=== PATIENT | female | born 1965 | race African-American/Black ===

== ENCOUNTER 2023-09-30 11:48 | Outpatient (CLI) | payer OTHER ==
[2023-09-30 13:13] LABS: Hematocrit 34.3 % (34.9-44.5); Hemoglobin 11.6 g/dL (12.0-15.5); Mean Corpuscular HGB CONC 33.8 g/dL (32.0-36.0); Mean Corpuscular Hemoglobin 27.1 pg (27.0-33.0); Mean Corpuscular Volume 80.1 fL (81.6-98.3); Mean Platelet Volume 11.4 fL (7.4-10.4); Platelet Count 285 10x3/uL (150-450); RBC Distribution Width 14.1 % (11.5-14.5); Red Blood Cell (RBC) Count 4.28 10x6/uL (3.90-5.03); White Blood Cell (WBC) Count 8.7 10x3/uL (3.5-10.5)
[2023-09-30 13:43] LABS: Anion Gap 12 mmol/L (10-20); BUN (Urea Nitrogen) 11 mg/dL (9.8-20.1); Calc. Creatinine Clearance 0 mL/min (70-130); Calcium 9.7 mg/dL (7.8-10.44); Carbon Dioxide 28 mmol/L (22-29); Chloride 108 mmol/L (98-107); Estimated GFR 65; Glucose 105 mg/dL (70-105); Potassium 3.9 mmol/L (3.5-5.1); Sodium 144 mmol/L (136-145)
== END 2023-09-30 11:49 | disposition home or self-care (01) ==
LOC: CSHLAB 11:48
PROVIDERS: ATTEND Surgery
DX: Z01.818 Encounter for other preprocedural examination (principal); C50.211 Malignant neoplasm of upper-inner quadrant of right female breast
CPT/HCPCS: 80048; 85027; 93005; 93010

== ENCOUNTER 2023-10-06 06:57 | Day surgery (SDC) | payer OTHER ==
[2023-09-30 12:23] VITALS: BMI 52.7
[2023-10-06] MEDS ORDERED: Bupivacaine PF 0.5% 30 ML VIAL ONE (08:53)
[2023-10-06] MEDS ORDERED: Isosulfan Blue 50 MG/5 ML VIAL ONE (08:53)
[2023-10-06] MEDS ORDERED: EPINEPHrine 1 MG/ML VIAL ONE (08:53)
[2023-10-06] MEDS ORDERED: CEFAZOLIN 2 GM VIAL ONE (08:53)
[2023-10-06] MEDS ORDERED: fentaNYL 50 mcg/mL 1 mL Vial ONE ×2 (09:38→12:14)
[2023-10-06] MEDS ORDERED: PROPOFOL 20 ML ONE (09:38)
[2023-10-06] MEDS ORDERED: Lidocaine 1% PF 5 ML VIAL ONE (09:38)
[2023-10-06] MEDS ORDERED: PHENYLEPHRINE-NS 100 MCG/ML 10 ML SYRINGE ONE (12:11)
[2023-10-06] MEDS ORDERED: Ondansetron PF 4 MG/2 ML Vial ONE (12:11)
[2023-10-06] MEDS ORDERED: HYDROcodone/Acetaminophen 5/325 mg Tablet ONE (12:46)
== END 2023-10-06 13:30 | disposition home or self-care (01) ==
LOC: CSHSDC 06:57
PROVIDERS: ATTEND Surgery
PROC: 0HTT0ZZ Resection of Right Breast, Open Approach (ICD-10-PCS; principal; 2023-10-06)
PROC: 07B50ZZ Excision of Right Axillary Lymphatic, Open Approach (ICD-10-PCS; principal; 2023-10-06)
DX: C50.211 Malignant neoplasm of upper-inner quadrant of right female breast (principal); C77.9 Secondary and unspecified malignant neoplasm of lymph node, unspecified; I10 Essential (primary) hypertension; E11.9 Type 2 diabetes mellitus without complications; J45.909 Unspecified asthma, uncomplicated; E66.01 Morbid (severe) obesity due to excess calories; Z68.43 Body mass index [BMI] 50.0-59.9, adult
CPT/HCPCS: 78195; 88307; 88341; 88342; A9541; C1713; J0171; J0665; J2405; J2704; J3010; Q9968

== ENCOUNTER 2024-01-22 10:36 | Outpatient (CLI) | payer OTHER | END 2024-01-22 10:37 | disposition home or self-care (01) | LOC: CSHMAMMO 10:36 | PROVIDERS: ATTEND Internal Medicine Hematology & Oncology | DX: M85.88 Other specified disorders of bone density and structure, other site (principal); C50.111 Malignant neoplasm of central portion of right female breast | CPT/HCPCS: 77080 ==

== ENCOUNTER 2024-10-12 09:46 | Outpatient (CLI) | payer OTHER | END 2024-10-12 09:47 | disposition home or self-care (01) | LOC: CSHWCC 09:46 | PROVIDERS: ATTEND Nurse Practitioner Family | DX: Z01.89 Encounter for other specified special examinations (principal); Z87.2 Personal history of diseases of the skin and subcutaneous tissue; Z92.3 Personal history of irradiation; Z85.3 Personal history of malignant neoplasm of breast | CPT/HCPCS: 99212; G0463 ==

== ENCOUNTER 2024-11-24 10:26 | Outpatient (CLI) | payer OTHER | END 2024-11-24 10:27 | disposition home or self-care (01) | LOC: CSHMAMMO 10:26 | PROVIDERS: ATTEND Surgery | DX: Z08 Encounter for follow-up examination after completed treatment for malignant neoplasm (principal); Z85.3 Personal history of malignant neoplasm of breast | CPT/HCPCS: 77066; G0279 ==